=== PATIENT | male | born 1960 | race Caucasian/White ===

== ENCOUNTER → 2018-01-22 | Outpatient (CLI) | payer OTHER ==
[2015-11-06 14:40] VITALS: BP 134/72
--- NOTE | 2018-01-22 22:27 | RAD ---
DATE: 01/22/2018 EXAM: DIGITAL DIAGNOSTIC BILATERAL, BREAST BILATERAL HISTORY: Bilateral palpable abnormalities deep to the nipple. COMPARISON: None available. This study was interpreted with the benefit of Computerized Aided Detection (CAD). The breast parenchyma shows scattered fibroglandular densities. Breast parenchyma level B. FINDINGS: Bilateral CC views of each breast were obtained. MLO views were not obtained due to patient discomfort and positioning. Bilateral retroareolar masses are visualized with morphology most suggestive of gynecomastia. Findings appear symmetric. Targeted sonographic evaluation was performed in the retroareolar region bilaterally. Flame-shaped masses in the retroareolar region are most compatible with gynecomastia. Findings are benign. IMPRESSION: Bilateral gynecomastia. No suspicious findings. BI-RADS CATEGORY: 2 BENIGN FINDING(S) RECOMMENDED FOLLOW-UP: CLIN FOLLOW UP IMAGING CLINICALLY INDICATED PQRS compliance statement: Mammography is a sensitive method for finding small breast cancers, but it does not detect them all and is not a substitute for careful clinical examination. A negative mammogram does not negate a clinically suspicious finding and should not result in delay in biopsying a clinically suspicious abnormality. "Our facility is accredited by the [employer] Mammography Program."
== END | disposition home or self-care (01) ==
LOC: MAMMO 13:02
DX: R92.8 Other abnormal and inconclusive findings on diagnostic imaging of breast (principal)
CPT/HCPCS: 76641; 77066

== ENCOUNTER 2018-09-05 18:14 | Inpatient (IN) | payer OTHER ==
[~2018-09-05] VITALS: Ht 182.9 cm; Wt 88.0 kg
[2018-09-05] MEDS ORDERED: IV NORMAL SALINE 1,000ML 1,000 ML IV ONE ×2 (19:00→20:00)
[2018-09-05] MEDS ORDERED: ONDANSETRON PF 4 MG/2 ML VIAL. IV ONE (19:00)
[2018-09-05 19:28] LABS: BASO # 0.1 x10^3/uL (0.0-0.2); BASO % 1 % (0-3); EOS % 0 % (0-3); HEMATOCRIT 32.8 % (39.0-53.0); HEMOGLOBIN 11.8 g/dL (13.0-17.5); LYMPH # 0.8 x10^3/uL (1.0-4.8); LYMPH % 7 % (24-48); MEAN CORPUSCULAR HEMOGLOBIN 41 pg (25-35); MEAN CORPUSCULAR HGB CONC 36 g/dL (31-37); MEAN CORPUSCULAR VOLUME 114 fL (79-100); MONO # 0.8 x10^3/uL (0.0-1.1); MONO % 7 % (0-9); NEUT # 10.7 x10^3uL (1.8-7.7); NEUT % 86 % (31-73); PLATELET COUNT 225 x10^3/uL (140-400); RED BLOOD COUNT 2.88 x10^6/uL (4.30-5.70); RED CELL DISTRIBUTION WIDTH 13.7 % (11.5-14.5); WHITE BLOOD COUNT 12.5 x10^3/uL (4.0-11.0)
[2018-09-05 19:40] LABS: INFLUENZA A PATIENT NEGATIVE (NEGATIVE); INFLUENZA B PATIENT NEGATIVE (NEGATIVE)
[2018-09-05 20:32] LABS: ALBUMIN/GLOBULIN RATIO 0.4 (1.0-1.7); CALCIUM 8.1 mg/dL (8.5-10.1); CREATININE 1.1 mg/dL (0.7-1.3); GFR 68.8; POTASSIUM 3.9 mmol/L (3.5-5.1); TOTAL BILIRUBIN 5.1 mg/dL (0.2-1.0)
--- NOTE | 2018-09-05 21:05 | ED.ADGEN ---
Past History Past Medical History: Hypertension, Other Past Surgical History: No Surgical History Alcohol Use: None Drug Use: None Adult General Chief Complaint Chief Complaint weakness HPI HPI 50 agers old male presented to the emergency department with chief complaint generalized weakness is also complaining of nausea vomiting and diarrhea for the past 4 days, low-grade temperature at home feeling palpitation. No abdominal pain no shortness breath no chest pain no any other symptoms except mild edema in the lower extremities Review of Systems Review of Systems Constitutional: Denies fever or chills [] Eyes: Denies change in visual acuity, redness, or eye pain [] HENT: Denies nasal congestion or sore throat [] Respiratory: Denies cough or shortness of breath [] Cardiovascular: No additional information not addressed in HPI [] GI: Denies abdominal pain, nausea, vomiting, bloody stools or diarrhea [] : Denies dysuria or hematuria [] Musculoskeletal: Denies back pain or joint pain []+2 edema bilaterally Integument: Denies rash or skin lesions [] Endocrine: Denies polyuria or polydipsia [] All other systems were reviewed and found to be within normal limits, except as documented in this note. Current Medications Current Medications Current Medications Medications (Trade) Dose Ordered Sig/Gris Start Time Stop Time Status Last Admin Dose Admin Ondansetron HCl (Zofran) 4 mg 1X ONCE 09/05/18 19:00 09/05/18 19:01 DC 09/05/18 19:27 4 MG Sodium Chloride 1,000 ml @ 1,000 mls/hr 1X ONCE 09/05/18 20:00 09/05/18 20:59 DC 09/05/18 20:29 1,000 MLS/HR Allergies Allergies Allergies Coded Allergies Type Severity Reaction Last Updated Verified No Known Drug Allergies 11/06/15 No Physical Exam Physical Exam Constitutional: Well developed, well nourished, no acute distress, non-toxic appearance. [] HENT: Normocephalic, atraumatic, bilateral external ears normal, oropharynx moist, no oral exudates, nose normal. [] Eyes: PERRLA, EOMI, conjunctiva normal, no discharge. [] Neck: Normal range of motion, no tenderness, supple, no stridor. [] Cardiovascular:Heart rate regular rhythm, no murmur [] Lungs & Thorax: Bilateral breath sounds clear to auscultation [] Abdomen: Bowel sounds normal, soft, no tenderness, no masses, no pulsatile masses. [] Skin: Warm, dry, no erythema, no rash. [] Back: No tenderness, no CVA tenderness. [] Extremities: No tenderness, no cyanosis, no clubbing, ROM intact, no edema. [] Neurologic: Alert and oriented X 3, normal motor function, normal sensory function, no focal deficits noted. [] Psychologic: Affect normal, judgement normal, mood normal. [] Current Patient Data Vital Signs Vital Signs Date Time Temp Pulse Resp B/P (MAP) Pulse Ox O2 Delivery O2 Flow Rate FiO2 09/05/18 18:33 97.7 105 20 Room Air Lab Results Laboratory Tests Test 09/05/18 19:10 09/05/18 20:00 White Blood Count 12.5 x10^3/uL (4.0-11.0) H Red Blood Count 2.88 x10^6/uL (4.30-5.70) L Hemoglobin 11.8 g/dL (13.0-17.5) L Hematocrit 32.8 % (39.0-53.0) L Mean Corpuscular Volume 114 fL (79-100) H Mean Corpuscular Hemoglobin 41 pg (25-35) H Mean Corpuscular Hemoglobin Concent 36 g/dL (31-37) Red Cell Distribution Width 13.7 % (11.5-14.5) Platelet Count 225 x10^3/uL (140-400) Neutrophils (%) (Auto) 86 % (31-73) H Lymphocytes (%) (Auto) 7 % (24-48) L Monocytes (%) (Auto) 7 % (0-9) Eosinophils (%) (Auto) 0 % (0-3) Basophils (%) (Auto) 1 % (0-3) Neutrophils # (Auto) 10.7 x10^3uL (1.8-7.7) H Lymphocytes # (Auto) 0.8 x10^3/uL (1.0-4.8) L Monocytes # (Auto) 0.8 x10^3/uL (0.0-1.1) Eosinophils # (Auto) 0.0 x10^3/uL (0.0-0.7) Basophils # (Auto) 0.1 x10^3/uL (0.0-0.2) Platelet Estimate Pending Influenza Type A (Rapid) Negative (NEGATIVE) Influenza Type B (Rapid) Negative (NEGATIVE) Sodium Level 116 mmol/L (136-145) *L Potassium Level 3.9 mmol/L (3.5-5.1) Chloride Level 80 mmol/L (98-107) L Carbon Dioxide Level 25 mmol/L (21-32) Anion Gap 11 (6-14) Blood Urea Nitrogen 7 mg/dL (8-26) L Creatinine 1.1 mg/dL (0.7-1.3) Estimated GFR (Cockcroft-Gault) 68.8 BUN/Creatinine Ratio 6 (6-20) Glucose Level 118 mg/dL (70-99) H Calcium Level 8.1 mg/dL (8.5-10.1) L Total Bilirubin 5.1 mg/dL (0.2-1.0) H Aspartate Amino Transferase (AST) 83 U/L (15-37) H Alanine Aminotransferase (ALT) 32 U/L (16-63) Alkaline Phosphatase 295 U/L (46-116) H Total Protein 7.0 g/dL (6.4-8.2) Albumin 2.0 g/dL (3.4-5.0) L Albumin/Globulin Ratio 0.4 (1.0-1.7) L Lipase 56 U/L (73-393) L EKG EKG [] Radiology/Procedures Radiology/Procedures [] Course & Med Decision Making Course & Med Decision Making Pertinent Labs and Imaging studies reviewed. (See chart for details) [] Final Impression Final Impression [] Problems: (1) Hyponatremia Dragon Disclaimer Dragon Disclaimer This electronic medical record was generated, in whole or in part, using a voice recognition dictation system. SAMANTHA CANO MD Sep 05, 2018 21:05
[2018-09-05] MEDS ORDERED: ACETAMINOPHEN 325 MG TABLET PO PRN (21:15)
[2018-09-05] MEDS ORDERED: ONDANSETRON PF 4 MG/2 ML VIAL. IV PRN (21:15)
[2018-09-05] MEDS ORDERED: MORPHINE SULFATE 4 MG/ML DISP.SYRIN. IV PRN (21:15)
[2018-09-05 21:18] LABS: BILIRUBIN,URINE MOD (NEG); CLARITY,URINE CLEAR; COLOR,URINE ORANGE; GLUCOSE,URINE NEG (NEG)
[2018-09-05 21:19] LABS: BACTERIA,URINE 0 /HPF (0-FEW); GRANULAR CASTS,URINE OCC /HPF; HYALINE CASTS, URINE MOD /HPF; NITRITE,URINE POS (NEG); RBC,URINE RARE /HPF (0-2); SQUAMOUS EPITHELIAL CELL,UR OCC /LPF; UROBILINOGEN,URINE 2 mg/dL (0.2 mg/dL)
--- NOTE | 2018-09-05 21:49 | RAD ---
CHEST AP ONLY Clinical Indication: Fever. No hx of injury or surgery to chest. Comparison: None. Findings: The cardiomediastinal silhouette is normal. There is linear airspace opacity in the medial right lung base. Cannot exclude hazy airspace disease in the retrocardiac left basilar lung. There is no pneumothorax. No pleural effusion is appreciated. No acute bone abnormality. IMPRESSION: 1. Medial right basilar discoid atelectasis or scarring. 2. Cannot exclude hazy left retrocardiac airspace disease. Electronically signed by: Ronnie De MD (09/05/2018 9:46 PM) [facility]
[2018-09-05 22:31] LABS: PLT ESTIMATE ADEQUATE (ADEQUATE); POLYCHROMASIA SLIGHT
[2018-09-05 22:40] VITALS: BP 101/64
--- NOTE | 2018-09-05 22:45 | NUR ---
Pt admitted via EMS from ER to ICU bed 4. Pt presents A&OX3, denies any complaints. Pt family at bedside. Oriented pt to unit, nurse, call light and plan of care. V/u stated. A full assessment completed and history obtained per .
[2018-09-05] MEDS: IV NORMAL SALINE 1,000ML 1,000 ML IV SCH (23:00)
[2018-09-06 02:30] VITALS: BP 90/58
[2018-09-06] MEDS ORDERED: CELE200C PO (04:12)
[2018-09-06] MEDS ORDERED: LOSA50TA86 PO (04:12)
[2018-09-06] MEDS ORDERED: LEVO50TA5 PO (04:12)
[2018-09-06] MEDS ORDERED: HYDR12.58 PO (04:19)
[2018-09-06] MEDS ORDERED: ESOM40CA PO (04:19)
[2018-09-06] MEDS ORDERED: ZOLP5TAB PO (04:19)
[2018-09-06] MEDS ORDERED: LORazepam 1 MG TABLET PO PRN ×2 (06:15)
[2018-09-06] MEDS: IV NORMAL SALINE 1,000ML 1,000 ML IV SCH ×2 (06:45→08:22)
[2018-09-06 07:04] LABS: ALBUMIN/GLOBULIN RATIO 0.4 (1.0-1.7); CALCIUM 7.7 mg/dL (8.5-10.1); CREATININE 1.1 mg/dL (0.7-1.3); GFR 68.8; POTASSIUM 3.2 mmol/L (3.5-5.1); TOTAL BILIRUBIN 4.6 mg/dL (0.2-1.0); TOTAL PROTEIN 6.5 g/dL (6.4-8.2)
--- NOTE | 2018-09-06 07:55 | NUR ---
wound care patient seen per wound care consult. see wound assessment. patient has a stage 3 pressure ulcer to the coccyx, the wound was cleaned, and redressed with Xeroform gauze and a foam, recommendations of changing every 3 days. patient also has an intact blood blister DTI pressure ulcer, the wound was measured and pictured at this time and redressed with skin prep, recommendations of applying every 2-3 days. patient needs to be turning every 2 hours, patient educated about pressure prevention. patient turned to his back at this time. patient heels in an off-loading position at this time. notified MILAD Farrell about the POC and wound care will continue to f/u.
[2018-09-06] MEDS ORDERED: POTASSIUM CHLORIDE 20 MEQ TABLET.ER. PO ONE (08:30)
[2018-09-06 08:38] VITALS: BP 97/68
[2018-09-06] MEDS ORDERED: LEVOTHYROXINE 50 MCG TABLET PO SCH (09:00)
[2018-09-06] MEDS ORDERED: MVI, ADULT NO.4 WITH VIT K 10 ML, THIAMINE INJ 100 MG, FOLIC ACID INJ 1 MG in IV NORMAL... IV SCH ×4 (09:00)
[2018-09-06] MEDS: CELECOXIB 100 MG CAPSULE PO SCH ×2 (09:00→09:25)
[2018-09-06] MEDS: PANTOPRAZOLE 40 MG TABLET. PO SCH (09:26)
[2018-09-06] MEDS: LEVOTHYROXINE 50 MCG TABLET PO SCH (09:26)
[2018-09-06 12:13] VITALS: BP 92/63
[2018-09-06 13:33] LABS: ALBUMIN 1.8 g/dL (3.4-5.0); ALBUMIN/GLOBULIN RATIO 0.4 (1.0-1.7); CALCIUM 7.6 mg/dL (8.5-10.1); GFR 76.7; TOTAL BILIRUBIN 4.2 mg/dL (0.2-1.0)
[2018-09-06 13:37] LABS: POTASSIUM 2.9 mmol/L (3.5-5.1)
[2018-09-06 13:38] LABS: TOTAL PROTEIN 5.9 g/dL (6.4-8.2)
[2018-09-06] MEDS: POTASSIUM CL 40MEQ IN 0.9%NACL 1,000 ML IV SCH (13:56)
--- NOTE | 2018-09-06 14:40 | RAD ---
Examination: Lower Extremity Venous Doppler Ultrasound History: Left leg swelling Comparison: None Procedure: Up scale, color flow 2D and spectal waveform analysis images are obtained with and without compression in the area of the common femoral vein, superficial femoral vein - femoral vein junction, main femoral vein (superficial femoral vein) and popliteal vein. Veins of the proximal calf are also imaged. Findings: There is normal duplex flow, color flow and compressibility of all visualized vein segments. No evidence of deep venous thrombus is present. Impression: No evidence of DVT in the left lower extremity venous system. Electronically signed by: Quinn Lemon MD (09/06/2018 2:37 PM) [place] [id number]
[2018-09-06] MEDS ORDERED: ONDANSETRON PF 4 MG/2 ML VIAL. IV PRN (15:45)
[2018-09-06] MEDS ORDERED: MORPHINE SULFATE 4 MG/ML DISP.SYRIN. IV PRN (15:45)
[2018-09-06 16:45] VITALS: BP 101/68
[2018-09-06] MEDS ORDERED: ZOLPIDEM 5 MG TABLET. PO PRN (16:45)
--- NOTE | 2018-09-06 18:47 | HP ---
ADMIT DATE: 09/05/2018 HISTORY OF PRESENT ILLNESS: The patient is a 58-year-old male patient, who apparently came to the Emergency Room with chief complaint of generalized weakness and nausea, vomiting as well as diarrhea for the last 4 days, has low-grade fever and according to his he was much more mobile and about 2 weeks ago, he started going downhill. according to her, he is not eating or drinking and required more assistance by her and her son and he was evaluated in the Emergency Room, was found to be to have mild leukocytosis, has severe hyponatremia with a serum sodium of 116 mEq per liter. He has also severe hypoalbuminemia and was admitted for replenish his sodium. According to his , also his abdomen seemed to be more distended than usual and he has generalized anasarca. He did have a history of DVT before his right lower extremity treated with warfarin for 6 months. 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 PAST SURGICAL HISTORY: Significant for left elbow surgery. He also has esophageal stricture that required dilatation twice. ALLERGIES: He has no known drug allergies. MEDICATIONS: He is currently on following medications: He is on losartan potassium 50 mg once a day, Celebrex 200 mg once a day, Ambien 2.5 mg at bedtime, hydrochlorothiazide 12.5 mg daily, Nexium 40 mg once a day and levothyroxine 50 mcg once a day. FAMILY HISTORY: He has 1 brother and sister younger. His father of amyotrophic lateral sclerosis at the age of 62. His mother is still alive at age 74 and has underwent multiple stent deployment. SOCIAL HISTORY: He is , has a son and daughter. He chews tobacco, drinks alcohol for the last 33 years. He drinks between 5-8 cans of beer everyday. He does not use any illicit drugs. 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 He normally has a scooter at home. REVIEW OF SYSTEMS: The patient denied any blurring of vision, cataract, glaucoma or macular degeneration. Denied any earache, tinnitus or sensorineural deafness. Denied any nosebleeds, stuffy nose or postnasal drip. Denied any sore throat, sore tongue, toothache, hoarseness of voice or difficulty swallowing. Did complain of nausea and retching, has had diarrhea, but denied any hematemesis, melena or hematochezia. Denied any dysuria, frequency, hematuria. Denied any chest pain, shortness of breath. PHYSICAL EXAMINATION: GENERAL: On arrival to the Emergency Room, he looked pale, jaundiced, but not cyanosis. No lymphadenopathy, no thyromegaly. No jugular venous distention. No limb edema. VITAL SIGNS: His heart rate was 105, blood pressure 101/64, temperature was 97.7, respiratory rate 20, and oxygen saturation was 97%. HEAD, EYES, EARS, NOSE AND THROAT: Showed normocephalic, atraumatic. NECK: Supple. HEART: Showed normal first and second heart sounds. No gallop, rub or murmur. CHEST: Clear to auscultation. No crepitation or rhonchi. ABDOMEN: Distended, soft with positive shifting dullness. No tenderness. No guarding or rigidity. No organomegaly. All hernial orifices are intact. Bowel sounds are normal. NEUROLOGIC: He is awake, alert, responding appropriately. All cranial nerves are intact. He has slurring of his speech and he seemed to have functional paraplegia. LABORATORY DATA: On arrival to the emergency room, his lab work showed that his white cell count was 12,500, hemoglobin 12, hematocrit 32, MCV 114 and a platelet count of 225,000. His chemistry showed a serum sodium 116, potassium 3.9, chloride 80, bicarbonate 25, anion gap of 11, BUN 7, creatinine 1.1, estimated GFR was 70 mL per minute. His glucose was 118, calcium was 8.1. Total bilirubin was 5.1. AST and alkaline phosphatase are elevated. ALT is normal. Total protein was 7, albumin 2. Serum lipase was 56. His prothrombin time was 12.5, INR 1.3. His urinalysis showed the urine was orange, clear with a pH of 5, specific gravity of 1.010. The urine was negative for glucose, trace of ketones, negative for blood, positive for nitrite and negative for leukocyte esterase, rare rbc's, 5-10 wbc's, no bacteria. His influenza A and B were negative and his nasal screen for MRSA by PCR was negative. His chest x-ray showed the cardiomediastinal silhouette is normal. There is linear airspace opacity in the medial right lung base, cannot exclude hazy airspace disease in the retrocardiac left basilar lung. There is no pneumothorax, no pleural effusion is appreciated. No acute bony abnormality. His venous Doppler ultrasound showed that there is no DVT in his left lower extremity venous system. IMPRESSION: In summary, this is a 58-year-old male patient who presented with a worsening mobility, anorexia, worsening weakness and diarrhea that has started about 4 days ago. He was treated with antibiotic about 2 weeks ago and he apparently has also multiple decubitus ulcers, apparently has stage 3 coccygeal decubitus ulcer. SUMMARY: In summary, he has basically functional paraplegia, coccygeal stage 3 decubitus ulcer. He has severe hyponatremia. A combination probably advanced liver disease as well as the effect of hydrochlorothiazide. He has also hypokalemia. PLAN: My plan is to replenish his sodium slowly as well as his potassium. I will discontinue his hydrochlorothiazide for the time being as well as Celebrex. We will monitor his electrolytes slowly. We will consult the wound care team and check his thyroid function test, Prothrombin time as well as ammonia. LENARD DURON MD DR: MANA/latricia JOB#: [id number] / [id number]
[2018-09-06 19:30] VITALS: BP 95/64
[2018-09-06 20:27] LABS: CALCIUM 8.1 mg/dL (8.5-10.1); CREATININE 1.2 mg/dL (0.7-1.3); GFR 62.2; POTASSIUM 3.2 mmol/L (3.5-5.1)
--- NOTE | 2018-09-06 20:41 | NUR ---
Went over plan of care with patient and his at shift change, both agreed on plan. Patient is being tuned every 2 hours. Bed alarm set for safety. Will continue to monitor closely.
--- NOTE | 2018-09-06 21:47 | RAD ---
Ultrasound of the right upper quadrant of the abdomen 09/06/2018 CLINICAL HISTORY: Abdominal distention with elevated liver function tests. TECHNIQUE: A real-time ultrasound examination of the right upper quadrant of the abdomen was performed. Multiple images were obtained. FINDINGS: The gallbladder is distended. Echogenic sludge is seen within the gallbladder. No gallstones are visualized. The gallbladder wall thickness is within normal limits. The common bile duct measures 6 mm in diameter which is within normal limits. The liver is mildly enlarged measuring 21 cm in length. Increased echogenicity of the liver parenchyma is seen consistent with fatty infiltration. The right kidney and visualized portions of the pancreas are within normal limits. A small amount of ascites is seen within the abdomen. There is a small right pleural effusion. IMPRESSION: 1. Sludge is seen within the gallbladder. 2. Mild hepatomegaly with fatty infiltration of the liver. 3. Small amount of free fluid is seen within the abdomen. 4. Small right pleural effusion. Electronically signed by: Terrance Mary MD (09/06/2018 9:44 PM) [facility]
[2018-09-06 22:31] VITALS: BP 87/61
[2018-09-07] VITALS (8 sets, daily range): BP systolic 73–129; BP diastolic 55–89
--- NOTE | 2018-09-07 00:29 | PN ---
DATE: 09/06/2018 SUBJECTIVE: The patient is resting, slightly propped up in bed, in no apparent distress. He himself denied any complaint. His is also concerned about abdominal distention and swelling of both lower extremities. His lab work on arrival showed sodium was only 116, probably a combination of advanced alcoholic liver disease and also he was on hydrochlorothiazide. He has also deranged liver enzymes and hyperbilirubinemia and severe protein-calorie malnutrition with serum albumin is only 2. He was started on sodium and his sodium has slowly risen from 116 up to 123 this afternoon. His potassium; however, went down to 2.9, probably because of hydrochlorothiazide and also excessive diarrhea, although he does not have any diarrhea since he was admitted here. PHYSICAL EXAMINATION: GENERAL: When I examined him this afternoon, he looked well and was clearly in no apparent respiratory distress, pale, jaundiced, but not cyanosis. No thyromegaly. No jugular venous distension. No limb edema. VITAL SIGNS: His heart rate was 85, blood pressure was 92/63, temperature was 97.8, respiratory rate was 18 and oxygen saturation was 97%. HEAD, EYES, EARS, NOSE AND THROAT: Normocephalic, atraumatic. NECK: Supple. HEART: Showed normal first and second heart sounds with no gallop, rub or murmur. CHEST: Clear to auscultation. No crepitation or rhonchi. ABDOMEN: Distended, soft, nontender. No guarding or rigidity. No organomegaly. All hernial orifices intact. Bowel sounds normal. NEUROLOGIC: He was awake, alert, responding appropriately. All cranial nerves intact. He moves all extremities without difficulty, has functional paraplegia with stage 3 sacrococcygeal decubitus ulcer. His intake over the last 24 hours was 3000, output was 350. LABORATORY DATA: His lab work at this afternoon showed a serum sodium up to 123, potassium is down to 2.9, chloride was 89, bicarbonate 27, anion gap of 7, BUN 6, creatinine 1, estimated GFR was 76 mL per minute. His glucose was 108, calcium was 7.6. Total bilirubin, AST, ALT, alkaline phosphatase are elevated. His ammonia was 75. Although, his prothrombin time was 12.5, INR is slightly elevated at 1.3. His total protein was 5.9, albumin was 1.8. ASSESSMENT: 1. Advanced alcoholic liver disease. 2. Severe hyponatremia, slowly improving. 3. Hypokalemia. He probably has portal hypertension and clinical he has ascites. We have arranged for him to have his abdominal ultrasound. His MCV was high, so we will arrange also check his B12, folate and he is already started on a banana bag and alcohol withdrawal protocol. We will monitor his electrolytes closely and replenish them as needed. LENARD DURON MD DR: MANA/latricia JOB#: [id number] / [id number]
[2018-09-07] MEDS: POTASSIUM CL 40MEQ IN 0.9%NACL 1,000 ML IV SCH ×2 (01:20→17:58)
--- NOTE | 2018-09-07 02:48 | NUR ---
Patient very anxious, scratching at his chest, not able to sleep. asked if we could please give patient the ativan to help him to sleep. Checked patients blood pressure manually and got a better read of 110/62 gave PRN ativan PO. Will continue to monitor patients blood pressure closely as it had been a little low.
[2018-09-07] MEDS: LEVOTHYROXINE 50 MCG TABLET PO SCH (05:08)
[2018-09-07 06:25] LABS: HEMOGLOBIN 9.9 g/dL (13.0-17.5); RED BLOOD COUNT 2.42 x10^6/uL (4.30-5.70); RED CELL DISTRIBUTION WIDTH 13.9 % (11.5-14.5); WHITE BLOOD COUNT 8.3 x10^3/uL (4.0-11.0)
[2018-09-07 06:44] LABS: ALBUMIN 1.7 g/dL (3.4-5.0); ALBUMIN/GLOBULIN RATIO 0.4 (1.0-1.7); CALCIUM 7.5 mg/dL (8.5-10.1); CREATININE 0.9 mg/dL (0.7-1.3); GFR 86.7; POTASSIUM 3.5 mmol/L (3.5-5.1); TOTAL BILIRUBIN 2.9 mg/dL (0.2-1.0); TOTAL PROTEIN 5.6 g/dL (6.4-8.2)
[2018-09-07] MEDS: PANTOPRAZOLE 40 MG TABLET. PO SCH ×2 (07:30→08:41)
[2018-09-07] MEDS: MAGNESIUM OXIDE 400 MG TABLET PO SCH ×4 (08:40→23:09)
[2018-09-07] MEDS: THIAMINE 100 MG TABLET. PO SCH ×2 (08:41→08:50)
[2018-09-07] MEDS ORDERED: [UNRECOGNIZED DRUG - REMARK] IV SCH ×3 (09:00)
[2018-09-07] MEDS ORDERED: MAGNESIUM SULFATE 2GM 50 ML IV ONE ×2 (09:15→13:45)
[2018-09-07] MEDS: LACTULOSE 20 GM/30 ML SOLUTION. PO SCH (23:08)
[2018-09-07] MEDS: rifAXIMin 550 MG TABLET PO SCH (23:08)
[2018-09-07] MEDS: SPIRONOLACTONE 25 MG TABLET PO SCH (23:19)
--- NOTE | 2018-09-07 23:56 | PN ---
DATE: 09/07/2018 SUBJECTIVE: The patient is resting, slightly propped up, sleeping comfortably, in no apparent distress. The nursing staff did not voice any concern and stated had an uneventful night. PHYSICAL EXAMINATION: GENERAL: When I examined him, he looked somewhat pale, but no jaundice, cyanosis or thyromegaly. No jugular venous distention. Has generalized anasarca. VITAL SIGNS: His heart rate was 79, blood pressure was 93/59, temperature was 97.8, respiratory rate was 16 and oxygen saturation was 94%. HEAD, EYES, EARS, NOSE AND THROAT: Showed normocephalic, atraumatic. NECK: Supple. HEART: Showed normal first and second heart sounds. No gallop, rub or murmur. CHEST: Clear to auscultation. No crepitation or rhonchi. ABDOMEN: Distended, soft, nontender. No guarding or rigidity. No organomegaly. All hernial orifices are intact. Bowel sounds normal. NEUROLOGIC: He was sleepy, but arousable. All cranial nerves intact. He moves upper extremities without difficulty, has functional paraplegia. He has a left-sided gluteal decubitus ulcer, for which he was seen by the wound care team and made the recommendation. His intake over the last 24 hours was 3500, output was 3050. LABORATORY DATA: As of this morning, his white cell count was 8300, hemoglobin 10, hematocrit 28, MCV 116 and platelet count of 171,000. Serum sodium was 130, potassium 3.5, chloride 98, bicarbonate 24, anion gap of 8, BUN 5, creatinine 0.9, estimated GFR was 86 mL per minute. His glucose was 97, calcium was 7.5. His total bilirubin is down to 2.9. AST, ALT, alkaline phosphatase are trending down. His magnesium was 1.7. His total protein was 5.6, albumin was 1.7. His TSH was high at 18.109. ASSESSMENT: 1. Advanced alcoholic liver disease. 2. Severe hypernatremia to slowly improving. Today's sodium is up 130. 3. Hypokalemia, has resolved. His potassium is 3.5. 4. He has probably alcoholic liver disease, ascites and hepatic encephalopathy. His ammonia is high at 75. 5. Hypomagnesemia, left has functional paraplegia and left gluteal decubitus ulcer, for which we will arrange for him to have hospital bed with low air loss mattress. His MCV was extremely high, so I ordered a B12, the result of which is still pending at the time of this dictation. LENARD DURON MD DR: MANA/latricia JOB#: [id number] / [id number]
[2018-09-08] MEDS: LEVOTHYROXINE 50 MCG TABLET PO SCH (05:24)
[2018-09-08 05:37] VITALS: BP 93/53
[2018-09-08 06:27] VITALS: BP 105/70
[2018-09-08 06:37] LABS: HEMATOCRIT 29.6 % (39.0-53.0); HEMOGLOBIN 10.4 g/dL (13.0-17.5); RED BLOOD COUNT 2.53 x10^6/uL (4.30-5.70); WHITE BLOOD COUNT 8.6 x10^3/uL (4.0-11.0)
[2018-09-08 07:01] LABS: ALBUMIN 1.6 g/dL (3.4-5.0); ALBUMIN/GLOBULIN RATIO 0.4 (1.0-1.7); CALCIUM 7.8 mg/dL (8.5-10.1); CREATININE 0.8 mg/dL (0.7-1.3); GFR 99.3; POTASSIUM 3.9 mmol/L (3.5-5.1); TOTAL BILIRUBIN 2.4 mg/dL (0.2-1.0); TOTAL PROTEIN 5.8 g/dL (6.4-8.2)
[2018-09-08] MEDS: POTASSIUM CL 40MEQ IN 0.9%NACL 1,000 ML IV SCH ×2 (08:18→19:34)
[2018-09-08] MEDS: PANTOPRAZOLE 40 MG TABLET. PO SCH (08:18)
[2018-09-08] MEDS: rifAXIMin 550 MG TABLET PO SCH ×2 (08:43→21:45)
--- NOTE | 2018-09-08 08:44 | NUR ---
Held Xifaxan r/t patients report of constipation. LBM 09/05.
[2018-09-08] MEDS: MVI, ADULT NO.4 WITH VIT K 10 ML, FOLIC ACID INJ 1 MG, THIAMINE INJ 100 MG in IV NORMAL... IV SCH ×4 (08:52)
[2018-09-08] MEDS: SPIRONOLACTONE 25 MG TABLET PO SCH ×2 (08:55→21:45)
[2018-09-08] MEDS: MAGNESIUM OXIDE 400 MG TABLET PO SCH ×3 (08:55→21:45)
[2018-09-08] MEDS: LACTULOSE 20 GM/30 ML SOLUTION. PO SCH ×2 (08:56→21:41)
[2018-09-08 10:37] VITALS: BP 98/64
[2018-09-08] MEDS ORDERED: MAGNESIUM SULFATE 2GM 50 ML IV ONE (14:30)
[2018-09-08 16:02] VITALS: BP 95/67
[2018-09-08] MEDS ORDERED: traZODone 50 MG TABLET. PO PRN (19:45)
[2018-09-08 19:46] VITALS: BP 109/77
--- NOTE | 2018-09-08 21:49 | PN ---
DATE: 09/08/2018 SUBJECTIVE: The patient is resting slightly propped up in bed, sleeping comfortably, is arousable. On questioning him, he denied any complaint. The nursing staff did not voice any concerns and had an uneventful night. PHYSICAL EXAMINATION: GENERAL: When I examined him, he looked somewhat pale, but no jaundice, cyanosis or thyromegaly. No jugular venous distension. No lower limb edema. VITAL SIGNS: His heart rate was 87, blood pressure was 98/64, temperature was 98.5, respiratory rate was 18 and oxygen saturation was 97%. HEAD, EYES, EARS, NOSE AND THROAT: Showed normocephalic, atraumatic. NECK: Supple. HEART: Showed normal first and second heart sounds. No gallop, rub or murmur. CHEST: Clear to auscultation. No crepitation or rhonchi. ABDOMEN: Distended, soft with positive shifting dullness. There is no guarding or rigidity. No organomegaly. All hernial orifices intact. Bowel sounds are normal. NEUROLOGIC: He is sleepy, but arousable. All his cranial nerves intact. He has slurring of his speech. He has also paraplegia with stage 3 coccygeal decubitus ulcer. He is mostly bed bound, wheelchair bound. His intake over the last 24 hours was 3500, output was 2300. LABORATORY DATA: This morning showed a serum sodium 134, potassium 3.9, chloride 102, bicarbonate 24, anion gap of 8, BUN 4, creatinine 0.8, estimated GFR was 99 mL per minute. His glucose was 87, calcium was 7.8, magnesium was 1.7. Total bilirubin 2.4. AST, ALT, alkaline phosphatase are slightly elevated. Ammonia is down to 43. Total protein was 5.8. Albumin was 1.6. His TSH is 18.109, however, his free T4 is 1.11 and total T3 was 74. His morning cortisol was 7.46. ASSESSMENT: 1. Advanced alcoholic liver disease. 2. Severe hyponatremia, slowly improving. His serum sodium up to 134. 3. Hypokalemia, resolved. His potassium is up to 3.9. 4. Portal hypertension, ascites and hepatic encephalopathy. His ammonia dropped down from 75 to 48. 5. Hypomagnesemia, resolved. 6. He has functional paraplegia with left gluteal decubitus ulcer for which we will arrange for him to have hospital bed with low air loss mattress. I checked his B12, however, the result of which is still pending. Once we have the hospital bed and low air loss mattress, he will be discharged home with home health tomorrow. LENARD DURON MD DR: MAAN/latricia JOB#: [id number] / [id number]
--- NOTE | 2018-09-08 22:08 | PDOC ---
Exam Note: Alli Note: Please also refer to the separate dictated note~for this date of service dictated separately.~Patient seen individually. Discussed the patient with Nursing staff reviewed the chart.~Reviewed interim history and current functioning. Reviewed vital signs,~Labs/ Radiology~and current medications noted below. Continue current treatment with the changes noted in the dictated addendum note Assessment: Vital Signs: Vital Signs Date Time Temp Pulse Resp B/P (MAP) Pulse Ox O2 Delivery O2 Flow Rate FiO2 09/08/18 20:28 Room Air 09/08/18 19:46 98.7 85 18 109/77 (88) 98 I&O Intake and Output 09/08/18 07:00 Intake Total 200 ml Output Total 1650 ml Balance -1450 ml Intake Oral 200 ml Output Urine Total 1650 ml Labs: Laboratory Tests Test 09/08/18 06:07 09/08/18 06:17 White Blood Count 8.6 x10^3/uL (4.0-11.0) Red Blood Count 2.53 x10^6/uL (4.30-5.70) L Hemoglobin 10.4 g/dL (13.0-17.5) L Hematocrit 29.6 % (39.0-53.0) L Mean Corpuscular Volume 117 fL (79-100) H Mean Corpuscular Hemoglobin 41 pg (25-35) H Mean Corpuscular Hemoglobin Concent 35 g/dL (31-37) Red Cell Distribution Width 14.0 % (11.5-14.5) Platelet Count 174 x10^3/uL (140-400) Sodium Level 134 mmol/L (136-145) L Potassium Level 3.9 mmol/L (3.5-5.1) Chloride Level 102 mmol/L (98-107) Carbon Dioxide Level 24 mmol/L (21-32) Anion Gap 8 (6-14) Blood Urea Nitrogen 4 mg/dL (8-26) L Creatinine 0.8 mg/dL (0.7-1.3) Estimated GFR (Cockcroft-Gault) 99.3 BUN/Creatinine Ratio 5 (6-20) L Glucose Level 87 mg/dL (70-99) Calcium Level 7.8 mg/dL (8.5-10.1) L Total Bilirubin 2.4 mg/dL (0.2-1.0) H Aspartate Amino Transferase (AST) 69 U/L (15-37) H Alanine Aminotransferase (ALT) 24 U/L (16-63) Alkaline Phosphatase 212 U/L (46-116) H Ammonia 43 mcmol/L (11-34) H Total Protein 5.8 g/dL (6.4-8.2) L Albumin 1.6 g/dL (3.4-5.0) L Albumin/Globulin Ratio 0.4 (1.0-1.7) L Free Thyroxine 1.11 ng/dL (0.76-1.46) Thyroxine (T4) 5.4 ug/dL (4.5-12.0) Current Medications: Meds: Current Medications Sodium Chloride 1,000 ml @ 1,000 mls/hr 1X ONCE IV Last administered on at 19:26; Start 09/05/18 at 19:00; Stop 09/05/18 at 20:00; Status DC Ondansetron HCl (Zofran) 4 mg 1X ONCE IV Last administered on 09/05/18at 19:27 ; Start 09/05/18 at 19:00; Stop 09/05/18 at 19:01; Status DC Sodium Chloride 1,000 ml @ 1,000 mls/hr 1X ONCE IV Last administered on at 20:29; Start 09/05/18 at 20:00; Stop 09/05/18 at 20:59; Status DC Ondansetron HCl (Zofran) 4 mg PRN Q4HRS PRN IV NAUSEA/VOMITING; Start 09/05/18 at 21:15; Stop 09/06/18 at 21:14; Status DC Morphine Sulfate (Morphine 4mg Syringe) 4 mg PRN Q2HR PRN IV PAIN; Start at 21:15; Stop 09/06/18 at 21:14; Status DC Sodium Chloride 1,000 ml @ 125 mls/hr Q8H IV Last administered on 09/06/18at 06 :45; Start 09/05/18 at 21:08; Stop 09/06/18 at 13:44; Status DC Acetaminophen (Tylenol) 650 mg PRN Q4HRS PRN PO FEVER; Start 09/05/18 at 21:15 ; Stop 09/06/18 at 21:14; Status DC Multivitamins/ Minerals 10 ml/ Thiamine HCl 100 mg/Folic Acid 1 mg/Sodium Chloride 1,011.2 ml @ 100 mls/ hr DAILY IV Last administered on 09/06/18at 08: 22; Start 09/06/18 at 09:00; Stop 09/06/18 at 11:07; Status DC Lorazepam (Ativan) 4 mg PRN Q1HR PRN PO For CIWA 8-14 Last administered on 09/07at 02:00; Start 09/06/18 at 06:15 Lorazepam (Ativan) 8 mg PRN Q1HR PRN PO For CIWA 15 or greater; Start 09/06/18 at 06:15 Lorazepam (Ativan) 2 mg PRN Q1HR PRN IV For CIWA 8-14 Last administered on 09/06at 06:46; Start 09/06/18 at 06:15 Lorazepam (Ativan) 4 mg PRN Q1HR PRN IV For CIWA 15 or greater; Start 09/06/18 at 06:15 Potassium Chloride (Klor-Con) 40 meq 1X ONCE PO Last administered on at 08:22; Start 09/06/18 at 08:30; Stop 09/06/18 at 08:31; Status DC Levothyroxine Sodium (Synthroid) 50 mcg DAILY06 PO ; Start 09/06/18 at 09:00; Status Cancel Pantoprazole Sodium (Protonix) 40 mg DAILYAC PO Last administered on 09/08/18at 08:18; Start 09/06/18 at 09:00 Levothyroxine Sodium (Synthroid) 50 mcg DAILY06 PO Last administered on at 05:24; Start 09/06/18 at 09:00 Celecoxib (CeleBREX) 200 mg DAILY PO ; Start 09/06/18 at 09:00; Stop 09/06/18 at 16:16; Status DC Multivitamins/ Minerals 10 ml/ Folic Acid 1 mg/ Sodium Chloride 1,010.2 ml @ 99.902 mls/hr DAILY IV Last administered on 09/07/18at 09:08; Start 09/07/18 at 09:00; Stop 09/08/18 at 07:23; Status DC Thiamine HCl (Vitamin B-1) 100 mg DAILY PO ; Start 09/07/18 at 09:00; Stop 09/08 at 07:24; Status DC Potassium Chloride/Sodium Chloride 1,000 ml @ 75 mls/hr [id number] IV Last administered on 09/08/18at 19:34; Start 09/06/18 at 13:45 Morphine Sulfate (Morphine 4mg Syringe) 4 mg PRN Q4HRS PRN IV PAIN; Start 09/06 at 15:45; Stop 09/06/18 at 16:16; Status DC Ondansetron HCl (Zofran) 4 mg PRN Q4HRS PRN IV NAUSEA/VOMITING; Start 09/06/18 at 15:45 Zolpidem Tartrate (Ambien) 2.5 mg PRN QHS PRN PO INSOMNIA; Start 09/06/18 at 16 :45 Magnesium Oxide (Magnesium Oxide) 400 mg BID PO ; Start 09/07/18 at 09:00; Stop 09/07/18 at 09:00; Status DC Magnesium Sulfate 50 ml @ 25 mls/hr 1X ONCE IV Last administered on 09/07/18at 09:08; Start 09/07/18 at 09:15; Stop 09/07/18 at 11:14; Status DC Lactulose (Lactulose) 20 gm BID PO Last administered on 09/08/18at 21:41; Start 09/07/18 at 21:00 Rifaximin (Xifaxan) 550 mg Q12HR PO Last administered on 09/08/18at 21:45; Start 09/07/18 at 21:00 Spironolactone (Aldactone) 25 mg BID PO Last administered on 09/08/18at 21:45; Start 09/07/18 at 21:00 Magnesium Sulfate 50 ml @ 25 mls/hr 1X ONCE IV ; Start 09/07/18 at 13:45; Stop 09/07/18 at 15:44; Status DC Magnesium Oxide (Magnesium Oxide) 400 mg TID PO Last administered on 09/08/18at 21:45; Start 09/07/18 at 14:00 Multivitamins/ Minerals 10 ml/ Folic Acid 1 mg/ Thiamine HCl 100 mg/Sodium Chloride 1,011.2 ml @ 100 mls/ hr DAILY IV Last administered on 09/08/18at 08: 52; Start 09/08/18 at 09:00; Stop 09/10/18 at 19:07 Magnesium Sulfate 50 ml @ 25 mls/hr 1X ONCE IV Last administered on 09/08/18at 19:33; Start 09/08/18 at 14:30; Stop 09/08/18 at 16:29; Status DC Trazodone HCl (Desyrel) 50 mg PRN QHS PRN PO INSOMNIA Last administered on 09/08at 22:06; Start 09/08/18 at 19:45 Active Scripts Active Reported Ambien (Zolpidem Tartrate) 5 Mg Tablet 2.5 Mg PO PRN QHS PRN Hydrochlorothiazide Tablet (Hydrochlorothiazide) 12.5 Mg Tablet 12.5 Mg PO DAILY Nexium Capsule (Esomeprazole Magnesium) 40 Mg Capsule.dr 1 Cap PO DAILY Levothyroxine Sodium 50 Mcg Tablet 1 Tab PO DAILY Cozaar (Losartan Potassium) 50 Mg Tablet 50 Mg PO DAILY Celebrex (Celecoxib) 200 Mg Capsule 1 Cap PO DAILY I have reviewed the current psychotropics carefully including drug interactions. Risk benefit ratio favors no change other than as noted in my dictated progress note. Diagnosis: Problems: (1) Hyponatremia YONY OBRIEN MD Sep 08, 2018 22:08
[2018-09-08 22:27] VITALS: BP 120/83
--- NOTE | 2018-09-08 22:33 | CONS ---
DATE OF CONSULTATION: 09/08/2018 PSYCHIATRIC CONSULTATION IDENTIFYING DATA: The patient is a 58-year-old male seen in bed 117, 1 [facility], for a psychiatric consult requested by Dr. Diaz on account of patient's " lifelong history of alcoholism." I have been informed that the has removed all the alcohol from his home and he will not be drinking anymore when he discharges on 09/09/2018. Reportedly, this was his 's decision, not his and I have been asked to consult to make recommendations for something to help his anxiety post-discharge and after he has completed his alcohol detox protocol. The patient also complains of ongoing insomnia. SUBJECTIVE: I met with the patient individually on the evening of 09/08/2018. Discussed with nursing staff, reviewed the chart, also met with the patient's who was with him in the room. HISTORY OF PRESENT ILLNESS: The patient presented to the ER with complaints of weakness, nausea, vomiting, diarrhea for the last 4 days, low-grade fever, all of which worsened gradually over the past 2 weeks. He was not eating or drinking, required more assistance by her and her son. He was found to have a mild leukocytosis in the ER, severe hyponatremia, sodium of 116; hypoalbuminemia. The patient was also found to have multiple decubitus ulcers. 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 He has been drinking about 8 beers a day, but initially started drinking in his teenage years. Reportedly, he was extremely good at football, go to college scholarship consequent to his football, and would drink starting with the football parties. 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 No clear history of bipolar disorder, suicidal or homicidal ideation. The patient states he was using alcohol and beer at home to avoid the tremors and seems to be in alcohol withdrawal tremors that he was self-treating with alcohol. PAST PSYCHIATRIC HISTORY: As above. He has never seen a psychiatrist in the past. Ongoing insomnia has been problematic. PAST MEDICAL HISTORY: As noted above. DRUG ALLERGIES: Negative. CODE STATUS: Full code. FAMILY HISTORY: Noncontributory. Parents were "teetotalers." SOCIAL HISTORY: The patient lives at home with his who is very closely involved in his care. MENTAL STATUS EXAM: The patient was seen individually on the evening of 09/08/2018. He minimizes his alcohol usage. He has great difficulty expressing himself consequent to the unknown neurological incident from 4 years ago. He was otherwise aware that he was at the hospital. Computation impaired. Denies being depressed. He is somewhat ruminative, but clearly states he will not use any alcohol post-discharge. Attention span is somewhat short, does seem somewhat anxious. No suicidal or homicidal ideation. LABORATORY DATA: Reviewed. IMPRESSION: From a psychiatric standpoint, the patient has a history of alcohol dependence, status post alcohol withdrawal, anxiety disorder, unspecified insomnia. Rest as above. PLAN: From a psychiatric standpoint, the patient is on the alcohol detox protocol with Ativan seems to be detoxing appropriately. He has been on Ambien 2.5 mg at bedtime p.r.n. insomnia in the past, but states he becomes incontinent consequent to this. I would suggest a trial on trazodone 50 mg half to maximum 4 tablets p.o. at bedtime p.r.n. insomnia. We discussed the option of naltrexone to help reduce his alcohol cravings post-discharge. He also has some ruminative, obsessive thought processes about the alcohol and depending on how he does with his sleeping stabilized, consideration may be given to using an SSRI in the future if needed. Dr. Diaz, thank you for the opportunity to participate in your patient's care. We will follow with you. MAN Len OBRIEN MD DR: ERNESTO/latricia JOB#: [id number] / [id number]
[2018-09-09 05:17] VITALS: BP 105/70
[2018-09-09] MEDS: LEVOTHYROXINE 50 MCG TABLET PO SCH (05:23)
[2018-09-09 07:00] LABS: ALBUMIN 1.6 g/dL (3.4-5.0); ALBUMIN/GLOBULIN RATIO 0.4 (1.0-1.7); CALCIUM 7.8 mg/dL (8.5-10.1); CREATININE 0.8 mg/dL (0.7-1.3); GFR 99.3; HEMATOCRIT 29.6 % (39.0-53.0); HEMOGLOBIN 10.4 g/dL (13.0-17.5); POTASSIUM 4.2 mmol/L (3.5-5.1); RED BLOOD COUNT 2.52 x10^6/uL (4.30-5.70); RED CELL DISTRIBUTION WIDTH 14.3 % (11.5-14.5); TOTAL BILIRUBIN 1.9 mg/dL (0.2-1.0); TOTAL PROTEIN 5.7 g/dL (6.4-8.2); WHITE BLOOD COUNT 8.6 x10^3/uL (4.0-11.0)
[2018-09-09] MEDS: POTASSIUM CL 40MEQ IN 0.9%NACL 1,000 ML IV SCH (07:47)
[2018-09-09] MEDS: MVI, ADULT NO.4 WITH VIT K 10 ML, FOLIC ACID INJ 1 MG, THIAMINE INJ 100 MG in IV NORMAL... IV SCH ×4 (10:38)
[2018-09-09] MEDS: rifAXIMin 550 MG TABLET PO SCH (10:38)
[2018-09-09] MEDS: SPIRONOLACTONE 25 MG TABLET PO SCH (10:38)
[2018-09-09] MEDS: MAGNESIUM OXIDE 400 MG TABLET PO SCH ×2 (10:39→14:36)
[2018-09-09] MEDS: PANTOPRAZOLE 40 MG TABLET. PO SCH (10:39)
[2018-09-09] MEDS: LACTULOSE 20 GM/30 ML SOLUTION. PO SCH (10:39)
[2018-09-09 11:08] VITALS: BP 113/77
[2018-09-09] MEDS ORDERED: RIFA550T4 PO (14:34)
[2018-09-09] MEDS ORDERED: SPIR25TA5 PO (14:34)
[2018-09-09] MEDS ORDERED: LACT10SO PO (14:34)
[2018-09-09 16:14] VITALS: BP 124/82
--- NOTE | 2018-09-09 17:06 | DS ---
DATE OF DISCHARGE: 09/09/2018 HISTORY OF PRESENT ILLNESS: The patient is a 58-year-old male patient, who was brought to the Emergency Room with a complaint of generalized weakness, nausea, vomiting as well as diarrhea for the last 4 days, has had also low-grade fever and according to his , he was much more mobile and about 2 weeks ago, he started going downhill. He is not eating or drinking and required more assistance by her and her son. He was evaluated in the Emergency Room and was found to be mild leukocytosis, severe hyponatremia with a serum sodium of 116. He also has severe hypoalbuminemia, generalized anasarca. Further evaluation showed that the patient drink alcohol heavily and he has advanced alcoholic liver disease with portal hypertension, ascites as well as hepatic encephalopathy. In fact, his ammonia was 75. He was started on a banana bag and alcohol withdrawal protocol. We added also lactulose and rifaximin. His magnesium was also extremely low and was treated initially with IV magnesium and eventually we added oral magnesium and his potassium also was low and that was replenished. He continued to have reversed rhythm, seems most of that the day despite the fact that his ammonia is down to only 22. He was seen by Dr. Blair, who recommended changing his Ambien to trazodone and as he stabilized, his vital signs are stable. His lab works are normalized. In fact, his sodium was 137, potassium 4.2. A decision was made to discharge him home with home health to provide physical and occupational therapy and nursing care as well as home health aide. We will have the hospital bed with the low air loss mattress. OBJECTIVE: GENERAL: When I examined him this afternoon, he was resting slightly propped up, sleeping comfortably in no apparent distress. He is arousable and on questioning him, he denied any complaint. When I examined him, he looked pale, but no jaundice, cyanosis or thyromegaly. No jugular venous distention. No limb edema. VITAL SIGNS: His heart rate was 79, blood pressure was 113/77, temperature was 98.6, respiratory rate 20, and oxygen saturation was 96%. HEAD, EYES, EARS, NOSE AND THROAT: Showed normocephalic, atraumatic. NECK: Supple. HEART: Showed normal first and second heart sounds with no gallop, rub or murmur. CHEST: Clear to auscultation. No crepitation or rhonchi. ABDOMEN: Distended, soft, nontender with positive shifting dullness. NEUROLOGIC: He was sleepy, but arousable. All his cranial nerves intact. He moves his upper extremities without difficulty, has paraplegia. He has also stage 3 sacrococcygeal decubitus ulcer. His intake over the last 24 hours was 200 and output was 1650. LABORATORY DATA: His lab work this morning showed a serum sodium 137, potassium 4.2, chloride 106, bicarbonate 25, anion gap of 6, BUN 5, creatinine 0.8, estimated GFR was 99 mL per minute, his glucose was 92, calcium was 7.8, bilirubin 1.9. AST, ALT, alkaline phosphatase are all elevated, but trending down. His ammonia was 22. Total protein was 5.7, albumin was 1.6. His TSH was slightly elevated; however, total T4, free T4 and TSH are normal. His vitamin B12 was 1647. His white cell count was 8600, hemoglobin 10.4, hematocrit 29.6, MCV 118 and platelet count of 163,000. His prothrombin time was 12.5, INR 1.3. Urinalysis is unremarkable. His urine culture showed a growth of less than 10,000 colony forming units of bacteria. DISCHARGE MEDICATIONS: The patient was discharged home to continue on his Nexium 40 mg once a day, levothyroxine 50 mcg once a day, losartan potassium 50 mg once a day. He was also discharged to continue on trazodone 50 mg at bedtime, spironolactone 25 mg twice a day, rifaximin 550 mg twice a day, lactulose 20 grams twice a day, magnesium oxide 400 mg twice a day. FINAL DISCHARGE DIAGNOSES: 1. Advanced alcoholic liver disease. 2. Severe hypernatremia, improving. His most recent serum sodium is up to 137. 3. Hypokalemia, resolved. His most recent serum potassium is up to 3.9. 4. Portal hypertension, ascites, hepatic encephalopathy. His ammonia was dropped from 75 down to 22. 5. Hypomagnesemia, resolved. His most recent serum magnesium was 1.9. 6. He has functional paraplegia with a stage 3 coccygeal decubitus ulcer. PLAN: The patient will be discharged home with the hospital bed and low air loss mattress. His lab work will be checked by the weekly including CMP and ammonia and will be faxed to his primary care physician at the [facility]. LENARD DURON MD DR: MANA/latricia JOB#: [id number] / [id number]
--- NOTE | 2018-09-09 18:39 | NUR ---
Discharge Note: LACY GALE [address] Discharge instructions and discharge home medications reviewed with patient's and a copy given. All questions have been answered and understanding verbalized. The following instructions and handouts were given: medications, follow up instructions, prescriptions and educational handouts given. Discontinued lines and drains: peripheral IV discontinued with no complications. Patient discharged to home with via EMS.
--- NOTE | 2018-09-10 22:08 | PN ---
DATE: 09/09/2018 PSYCHIATRIC PROGRESS NOTE This late entry 09/09/2018 covers elements not covered in my initial note. SUBJECTIVE: I met with the patient individually in the evening and also with his . He received trazodone previous night per nursing reported, still did not sleep very well according to his and we discussed at some length that he could have up to a maximal of 300 mg trazodone at bedtime p.r.n. for insomnia. Also discussed keeping away from alcohol given his significant alcohol withdrawal symptoms that he experienced at this time. Discussed regarding priapism as a potential side effect from the trazodone and discussed with the about Wernicke-Korsakoff syndrome as well. REVIEW OF SYSTEMS: Difficulty with his speech and ambulation, consistent with his diagnosis. No CV, , pulmonary, eye system symptoms on review. MENTAL STATUS EXAM: Oriented to himself and situation. Speech, often responses monosyllabic. Abstraction fair, computation impaired, language function intact. Mood and affect somewhat withdrawn. LABORATORY DATA: Reviewed. IMPRESSION: Unchanged from initial note. PLAN: No change from initial note other than above. MAN Len OBRIEN MD DR: ERNSETO/latricia JOB#: [id number] / [id number]
== END 2018-09-09 18:30 | disposition home health service (06) | DRG 896 ==
LOC: ER 18:14 → ICU 21:50 → 1 SOUTH 09-07 16:55
PROVIDERS: ADMIT Internal Medicine; ATTEND Internal Medicine
DX: F10.239 Alcohol dependence with withdrawal, unspecified (principal); L89.153 Pressure ulcer of sacral region, stage 3; E43 Unspecified severe protein-calorie malnutrition; E87.1 Hypo-osmolality and hyponatremia; K76.6 Portal hypertension; R18.8 Other ascites; E87.6 Hypokalemia; I10 Essential (primary) hypertension; E83.42 Hypomagnesemia; F41.9 Anxiety disorder, unspecified; D72.829 Elevated white blood cell count, unspecified; E03.9 Hypothyroidism, unspecified; F44.4 Conversion disorder with motor symptom or deficit; K70.40 Alcoholic hepatic failure without coma; L89.329 Pressure ulcer of left buttock, unspecified stage; Z72.0 Tobacco use; Z68.26 Body mass index [BMI] 26.0-26.9, adult; Z86.718 Personal history of other venous thrombosis and embolism
CPT/HCPCS: 36415; 71045; 76705; 80048; 80053; 81001; 82140; 82533; 82607; 82947; 83690; 83735; 84436; 84439; 84443; 84480; 85025; 85027; 85610; 87086; 87641; 87804; 93971; 96361; 96374; J2060; J2405; J3475; 99285-25; J7030